=== PATIENT | female | born 1970 | race Caucasian/White ===

== ENCOUNTER 2017-11-26 19:30 | Observation (INO) | payer OTHER ==
[~2017-11-26] VITALS: Ht 162.6 cm; Wt 139.3 kg
[2017-11-26] MEDS ORDERED: VITAMIN D1000 UNI1 PO (19:41)
[2017-11-26] MEDS ORDERED: TUMS PO (19:41)
[2017-11-26] MEDS ORDERED: LEVOXYL125 MCG PO (19:41)
[2017-11-26 19:42] VITALS: BP 144/80
[2017-11-26 20:13] LABS: ABSOLUTE BASOPHILS 0.1 thou/uL (0.0-0.2); ABSOLUTE EOSINOPHILS 0.2 thou/uL (0.0-0.7); ABSOLUTE LYMPHOCYTES 2.8 thou/uL (0.8-5.3); ABSOLUTE MONOCYTES 0.7 thou/uL (0.0-1.2); ABSOLUTE NEUTROPHILS 7.1 thou/uL (1.6-8.1); BASOPHILS 0.8 %; EOSINOPHILS 2.2 %; HEMATOCRIT 39.4 % (37.0-47.0); HEMOGLOBIN 13.1 gm/dL (12.0-15.0); LYMPHOCYTES 25.3 %; MCH 28.4 pg (26.0-34.0); MCHC 33.1 g/dL (28.0-37.0); MCV 85.7 fL (80.0-100.0); MONOCYTES 6.1 %; MPV 7.6 fl. (7.2-11.1); NUCLEATED RBCS 0 /100WBC; PLATELET COUNT* 270 thou/uL (150-400); POLYS 65.6 %; RDW-CV 13.5 % (10.5-14.5); WBC 10.9 thou/uL (4.0-11.0)
[2017-11-26 20:23] LABS: ANION GAP 8 mmol/L (7-16); BUN 19 mg/dL (7-18); CALCIUM 7.7 mg/dL (8.5-10.1); CHLORIDE 104 mmol/L (98-107); CO2 29 mmol/L (21-32); GLUCOSE 140 mg/dL (70-99); POTASSIUM 4.1 mmol/L (3.5-5.1); SODIUM 141 mmol/L (136-145)
[2017-11-26 20:42] LABS: ALBUMIN 2.8 g/dL (3.4-5.0); ALKALINE PHOSPHATASE 72 U/L (46-116); CK-MB MASS < 0.5 ng/mL (<0.5-3.6); LIPASE 163 U/L (73-393); MAGNESIUM 1.9 mg/dL (1.8-2.4); NT-PRO BRAIN NAT PEPTIDE 141 pg/mL (<300); SGOT 15 U/L (15-37); SGPT 18 U/L (30-65); TOTAL BILIRUBIN 0.2 mg/dL (<0.1-1.0); TROPONIN-I LEVEL <0.06 ng/mL (<0.06)
[2017-11-26 21:52] VITALS: BP 129/57
[2017-11-26 23:26] VITALS: BP 102/42
[2017-11-27 04:00] VITALS: BP 126/61
--- NOTE | 2017-11-27 05:41 | NUR ---
PT ADMIT TO 211. ALERT ORIENTED. GETS UP WITH ASSIST. STEADY GAIT. TELEMETRY SHOWS SR. DENIES CP OR DISCOMFORT. WILL CONTINUE TO MONITOR
[2017-11-27 08:30] VITALS: BP 109/556
[2017-11-27 12:08] LABS: CREATININE 0.8 mg/dL (0.6-1.3); POTASSIUM 4.4 mmol/L (3.5-5.1)
[2017-11-27 12:34] VITALS: BP 135/65
--- NOTE | 2017-11-27 12:37 | NUR ---
ASSUMED PT CARE AT 0700 PT IS ALERT AND ORIENTED X 4 PT DENIES PAIN OR SOA ON RA, PT IS SR ON THE MONITOR, PT IS UP AD [place] PT IS NOT A FALL RISK, PT WILL DISCHARGE CARDIOLOGY CLEARED PT WANTS PT TO FOLLOW UP OUTPATIENT FOR STRESS TEST AND ECHO, PT IS PLEASANT AND COOPERATIVE, WILL CONTINUE TO MONITOR
--- NOTE | 2017-11-27 12:42 | EKG ---
[place] [address] ELECTROCARDIOGRAM REPORT Name: JEANNIESONYASHANIQUAEEN Room: [address] ADM IN ..#: [id number] Admission: 11/26/17 Attend Phys: Ciera Li Discharge: Date of : 72 Report #: [id number] THIS REPORT FOR: //name// [facility] ED Test Date: 2017-11-26 Test Time: 19:38:17 Pat Name: SHANIQUA GARDNER Department: Room: [facility] Gender: F Compliance Vice President: MC Jay : 1970 Requested By: Albert Oneill Order Number: [id number] MD: Corbin Rouse Measurements Intervals [place] Rate: 87 P: 8 [place]: 149 QRS: 22 QRSD: 87 T: 37 QT: 400 QTc: 482 Interpretive Statements Sinus rhythm Low voltage, precordial leads No previous ECG available for comparison Electronically Signed On 11-27-2017 12:42:03 CDT by Corbin Rouse [email or web address] <ELECTRONICALLY SIGNED> By: Corbin Rouse MD, [facility] 11/27/17 1242 37 37 Corbin Rouse MD, FACC /EPI
[2017-11-27 12:53] VITALS: BP 135/65
--- NOTE | 2017-12-02 11:09 | CON ---
[address] [address] CONSULTATION Name: JJSHANIQUAShavonne POWELLHARLEY Room: [address] Juliano Medrano#: [id number] Admission: 11/26/17 Attend Phys: Ciera Li Discharge: 11/27/17 Date of : 72 Report #: [id number] THIS REPORT FOR: //name// CC: Diya Cast CHIEF COMPLAINT: Chest pain. HISTORY OF PRESENT ILLNESS: The patient is a 47-year-old woman who has a remote history of abnormal cardiac testing result and coronary artery disease at [facility] more than 5 years ago, who presented with a resting episode of chest discomfort and exertional shortness of breath, which has been progressive over the past 4-6 weeks. She has a history of endocrine disease and hypocalcemia, hypothyroidism and she reports that when her calcium is low, she starts to develop cardiovascular symptoms. Her presenting ECG was normal and she has ruled out for an acute myocardial infarction by serial cardiac markers. She is asymptomatic for chest pain or shortness of breath this morning. Her mother is critically ill with malignancy and needs rides for her PET scans tomorrow and the patient is anxious for discharge. PAST MEDICAL HISTORY: Remotely, she had a history of being told she has had a heart attack at [facility] and subsequent followup had been lost. She had been hypertensive in the past, but has lost over 100 pounds and reports normal blood pressures. She has hypothyroidism and hypocalcemia. She had been seen by an construction scheduler at [facility] where she receives most of her primary care. PAST SURGICAL HISTORY: No recent surgeries. SOCIAL HISTORY: She is a nonsmoker. FAMILY HISTORY: There is no real family history of atherosclerotic heart disease. There is a history of AFib and her mother has a pacemaker apparently. REVIEW OF SYSTEMS: GENERAL: No fevers or chills. SKIN: No rashes. CARDIOVASCULAR: Positive chest pain. Positive dyspnea on exertion. No edema, no orthopnea, no PND. EYES: Denies any blurred vision or loss of vision. THROAT: Denies any dysphagia. MUSCULOSKELETAL: Positive weakness, diffuse. Denies any joint pain or swelling. CONSTITUTIONAL: Denies [place]vers [place] [address] CONSULTATION Name: SHANIQUA GARDNER [address] [id number] Admission: 11/26/17 Attend Phys: Ciera Li Discharge: 11/27/17 Date of : 72 Report #: [id number] PHYSICAL EXAMINATION: VITAL SIGNS: Blood pressures in the 120s/70s, in sinus rhythm, pulse ox 98% on room air. Her weight is 306 pounds. GENERAL: This is an obese adult woman. She is alert, no apparent distress. HEENT: Eyes are intact. No facial asymmetry. NECK: Supple. No jugular venous distention. CARDIOVASCULAR: Regular, I cannot hear a murmur or S3. LUNGS: Clear to auscultation. LABORATORY DATA: Her electrocardiogram demonstrates a sinus rhythm with normal voltage, no alternans. Normal ST segments. Troponin I is 0.06 x 3 sets. Hemoglobin is 13.1. ASSESSMENT AND PLAN: 1. Chest pain. There is a remote history of coronary artery disease, but she has ruled out for an acute myocardial infarction and I think it is okay for her to proceed with an outpatient 2-day nuclear stress test because of her size. She had had difficulty with treadmills in the past, so this will be a pharmacologic stress test. 2. Dyspnea. I have arranged for an echocardiogram. 3. Hypocalcemia. I will defer this to our hospital Internal Medicine colleagues in regards to replacement therapy. 4. Hypothyroidism. She will continue with her Synthroid as directed by her primary care doctor. We have arranged for followup after her stress test next week with our nurse practitioner within the next 2-3 weeks. <ELECTRONICALLY SIGNED> By: Corbin Rouse MD, FACC 12/02/17 1109 1108 [id number] Rouse MD, FACC /nt
[2017-12-28] MEDS ORDERED: CALCITRIOL0.25 MCG PO (12:08)
== END 2017-11-27 13:12 | disposition home or self-care (01) ==
LOC: M.ERS 19:30 → M.2W 21:06 → M.TBA-ER 21:06 → M.2W 21:53
PROVIDERS: Emergency Medicine Emergency Medical Services; ADMIT Internal Medicine
DX: I20.0 Unstable angina (principal); E83.51 Hypocalcemia; E03.9 Hypothyroidism, unspecified; R06.00 Dyspnea, unspecified; I25.2 Old myocardial infarction; Z98.890 Other specified postprocedural states

== ENCOUNTER → 2018-01-10 | Day surgery (SDC) | payer OTHER ==
[~2018-01-10] MED LIST: CALCITRIOL0.25 MCG PO; LEVOXYL125 MCG PO; TUMS PO; VITAMIN D1000 UNI1 PO
[2018-01-10 13:44] LABS: HEMATOCRIT 42.5 % (37.0-47.0); HEMOGLOBIN 14.1 gm/dL (12.0-15.0); MCH 28.2 pg (26.0-34.0); MCHC 33.2 g/dL (28.0-37.0); MPV 7.9 fl. (7.2-11.1); RDW-CV 13.8 % (10.5-14.5); WBC 10.4 thou/uL (4.0-11.0)
[2018-01-10 14:21] LABS: CALCIUM 7.5 mg/dL (8.5-10.1); CREATININE 0.9 mg/dL (0.6-1.3); POTASSIUM 3.9 mmol/L (3.5-5.1)
[2018-01-10 14:26] LABS: ALBUMIN 3.3 g/dL (3.4-5.0); TOTAL BILIRUBIN 0.5 mg/dL (<0.1-1.0); TOTAL PROTEIN 7.6 g/dL (6.4-8.2)
== END | disposition home or self-care (01) ==
LOC: M.SUR 10:51
PROVIDERS: Internal Medicine Gastroenterology
DX: Z12.11 Encounter for screening for malignant neoplasm of colon (principal); K57.30 Diverticulosis of large intestine without perforation or abscess without bleeding; K64.8 Other hemorrhoids; I25.10 Atherosclerotic heart disease of native coronary artery without angina pectoris; E03.9 Hypothyroidism, unspecified; E66.01 Morbid (severe) obesity due to excess calories; Z80.0 Family history of malignant neoplasm of digestive organs; Z90.49 Acquired absence of other specified parts of digestive tract; Z98.890 Other specified postprocedural states

== ENCOUNTER → 2019-02-05 | Outpatient (CLI) | payer OTHER ==
[2019-02-05 14:40] VITALS: BP 152/80
[2019-02-05 15:40] VITALS: BP 148/86
== END ==
LOC: M.INFUS 14:13
DX: E83.51 Hypocalcemia (principal); I10 Essential (primary) hypertension; I25.2 Old myocardial infarction; E89.0 Postprocedural hypothyroidism; E66.9 Obesity, unspecified

== ENCOUNTER → 2019-03-16 | Outpatient (CLI) | payer OTHER ==
[2019-03-16 11:48] VITALS: BP 154/95
[2019-03-16 12:24] VITALS: BP 150/88
--- NOTE | 2019-03-16 14:11 | NUR ---
ARRIVED AMBULATORY. MADE SELF COMFORTABLE. ORDER DOSE CLARAFIED. INFUSION COMPLETED AND TOELRATED WELL.
== END ==
LOC: M.INFUS 10:57
DX: E83.51 Hypocalcemia (principal)

== ENCOUNTER → 2019-07-11 | Outpatient (CLI) | payer OTHER | LOC: M.ULTRA 07:16 | DX: E89.0 Postprocedural hypothyroidism (principal) ==

== ENCOUNTER 2019-08-31 22:25 | Inpatient (IN) | payer OTHER ==
[~2019-08-31] VITALS: Ht 162.6 cm; Wt 167.8 kg
[~2019-08-31 22:25] MED LIST changes: -VITAMIN D1000 UNI1 PO; +VITAMIN D33000 UNIT PO
[2019-08-31 22:30] VITALS: BP 170/78
[2019-08-31] MEDS ORDERED: ADIPEX-P37.5 MG PO (22:39)
[2019-08-31 22:44] LABS: ABSOLUTE BASOPHILS 0.1 thou/uL (0.0-0.2); ABSOLUTE EOSINOPHILS 0.2 thou/uL (0.0-0.7); ABSOLUTE LYMPHOCYTES 2.9 thou/uL (0.8-5.3); ABSOLUTE MONOCYTES 0.8 thou/uL (0.0-1.2); ABSOLUTE NEUTROPHILS 7.9 thou/uL (1.6-8.1); BASOPHILS 0.8 %; EOSINOPHILS 1.7 %; HEMATOCRIT 40.6 % (37.0-47.0); HEMOGLOBIN 13.4 gm/dL (12.0-15.0); LYMPHOCYTES 24.3 %; MCH 28.4 pg (26.0-34.0); MONOCYTES 6.7 %; MPV 7.5 fl. (7.2-11.1); NUCLEATED RBCS 0 /100WBC; PLATELET COUNT* 301 thou/uL (150-400); POLYS 66.5 %; RBC 4.72 mil/uL (4.20-5.00); WBC 11.9 thou/uL (4.0-11.0)
[2019-08-31 22:51] LABS: CALCIUM 7.8 mg/dL (8.5-10.1); CREATININE 0.8 mg/dL (0.6-1.3); POTASSIUM 3.7 mmol/L (3.5-5.1)
[2019-08-31 23:01] LABS: ALBUMIN 3.2 g/dL (3.4-5.0); MAGNESIUM 1.8 mg/dL (1.8-2.4); TOTAL BILIRUBIN 0.3 mg/dL (<0.1-1.0); TOTAL PROTEIN 7.4 g/dL (6.4-8.2)
[2019-09-01 02:12] VITALS: BP 152/78
[2019-09-01 02:15] VITALS: BP 128/76
[2019-09-01] MEDS ORDERED: CALCIUM500 MG PO (03:04)
--- NOTE | 2019-09-01 05:56 | NUR ---
PT ADMITTED TO ROOM 227 FROM ED WITH HYPOCALCEMIA. PT HAS HX OF THYROIDECTOMY. PT REPORTS TINGLING TO MUSCLES BUT NOT PAIN. EKG SR. VSS ON RA. SR ON MONITOR. PT ORIENTED TO ROOM,PLAN OF CARE, TREATMENTS AND FALL PRECAUTIONS. MEDS REVIEWED. PT RESTING NOW WITH CALL LIGHT IN REACH
[2019-09-01 07:45] VITALS: BP 147/65
[2019-09-01 12:00] VITALS: BP 144/74
[2019-09-01 13:44] VITALS: BP 144/74
--- NOTE | 2019-09-01 14:07 | NUR ---
RECEIVED REPORT FROM KHADIJAH HEREDIA. ASSUMED CARE OF PT AROUND 0730. PT A&O X4. VSS. CARIDAC MONITOR IN PLACE TRACING SR WITH NO CHANGES. AM ASSESSMENT AND VITALS COMPLETED CHARTED. PT DENIED PAIN OR DISCOMFORT, STATES READINESS TO GO HOME. MEDS PER EMAR. PARTNER AT BEDSIDE. DR AARON ROUNDED - DISCHARGE ORDERS RECEIVED. DISCHARGE COMPLETED DOCUMENTED. DISCHAGE SUMMARY GONE OVER WITH PT, PT COMMUNICATES UNDERSTANDING. ALL BELONGINGS GATHERED AND LEFT WITH PT. IV AND CARDIAC MONIOR REMOVED. PT LEFT UNIT WALKING WITH NURSING STAFF. PT LEFT HOSPITAL IN CAR WITH PARTNER.
--- NOTE | 2019-09-03 08:32 | EKG ---
[place] [address] ELECTROCARDIOGRAM REPORT Name: JEANNIESONYASHANIQUAEEN Room: [place] [address] DIS IN .R.#: [id number] Admission: 09/01/19 Attend Phys: Ruel Kim Discharge: 09/01/19 Date of : 72 Report #: [id number] THIS REPORT FOR: //name// [facility] ED Test Date: 2019-08-31 Test Time: 22:30:04 Pat Name: SHANIQUA GARDNER Department: Room: [facility] Gender: F Photogeologist: : 1970 Requested By: Albert Oneill Order Number: [id number] MD: Caesar Guardado Measurements Intervals [place] Rate: 91 P: 13 IN: 143 QRS: 17 QRSD: 92 T: 39 QT: 383 QTc: 472 Interpretive Statements Sinus rhythm Baseline wander in lead(s) V3 Compared to ECG 11/26/2017 19:38:17 No significant changes Electronically Signed On 09-03-2019 8:32:33 MAGNAFLUX OPERATOR by Caesar Guardado [email or web address] <ELECTRONICALLY SIGNED> By: Caesar Guardado MD, FACC 09/03/19 0832 29 29 Caesar Guardado MD, FAC /EPI
== END 2019-09-01 14:08 | disposition home or self-care (01) | DRG 644 ==
LOC: M.ERS 22:25 → M.TBA-ER 09-01 00:07 → M.2W 09-01 02:09
PROVIDERS: Emergency Medicine Emergency Medical Services; ADMIT Family Medicine
DX: E20.9 Hypoparathyroidism, unspecified (principal); Z68.44 Body mass index [BMI] 60.0-69.9, adult; R65.10 Systemic inflammatory response syndrome (SIRS) of non-infectious origin without acute organ dysfunction; E66.01 Morbid (severe) obesity due to excess calories; R73.9 Hyperglycemia, unspecified; E89.0 Postprocedural hypothyroidism; Z79.899 Other long term (current) drug therapy; Z90.49 Acquired absence of other specified parts of digestive tract; R07.9 Chest pain, unspecified

== ENCOUNTER → 2020-01-14 | Outpatient (CLI) | payer BC ==
[~2020-01-14] MED LIST changes: +ADIPEX-P37.5 MG PO; +CALCIUM500 MG PO
== END ==
LOC: M.ULTRA 13:00
DX: N92.0 Excessive and frequent menstruation with regular cycle (principal)

== ENCOUNTER 2020-02-29 16:53 | Emergency (ER) | payer BC ==
[~2020-02-29] VITALS: Ht 162.6 cm; Wt 162.8 kg
--- NOTE | ~2020-02-29 | H ---
[address] [address] HISTORY AND PHYSICAL Name: SHANIQUA GARDNER Room: [facility] [place]#: [id number] Admission: 02/29/20 Attend Phys: Discharge: 02/29/20 Date of : 72 Report #: [id number] THIS REPORT FOR: //name// cc: Diya Fernández Maggie M. DO ~ THIS REPORT FOR: //name// Patient was here less than 24 hour please refer to the final summation note. Patient left AMA. By: [id number] Records Staff [facility] /LYLE
[2020-02-29 17:02] VITALS: BP 161/54
[2020-02-29] MEDS ORDERED: DEPO-PROVE150 MG/11 IM (17:05)
[2020-02-29 18:06] LABS: ABSOLUTE BASOPHILS 0.1 thou/uL (0.0-0.2); ABSOLUTE EOSINOPHILS 0.1 thou/uL (0.0-0.7); ABSOLUTE LYMPHOCYTES 2.3 thou/uL (0.8-5.3); ABSOLUTE MONOCYTES 0.6 thou/uL (0.0-1.2); ABSOLUTE NEUTROPHILS 7.1 thou/uL (1.6-8.1); EOSINOPHILS 1.1 %; HEMATOCRIT 39.6 % (37.0-47.0); HEMOGLOBIN 12.9 gm/dL (12.0-15.0); LYMPHOCYTES 22.8 %; MCH 27.5 pg (26.0-34.0); MCHC 32.6 g/dL (28.0-37.0); MCV 84.2 fL (80.0-100.0); NUCLEATED RBCS 0 /100WBC; PLATELET COUNT* 298 thou/uL (150-400); POLYS 69.1 %; RDW-CV 13.8 % (10.5-14.5); WBC 10.2 thou/uL (4.0-11.0)
[2020-02-29 18:14] LABS: CALCIUM 7.3 mg/dL (8.5-10.1); CREATININE 0.9 mg/dL (0.6-1.3)
[2020-02-29 18:25] LABS: TOTAL BILIRUBIN 0.2 mg/dL (<0.1-1.0); TOTAL PROTEIN 7.2 g/dL (6.4-8.2)
--- NOTE | 2020-02-29 19:11 | NUR ---
PT NOT IN ROOM AT 1840 FOR TESTS
[2020-02-29 20:00] VITALS: BP 160/80
--- NOTE | 2020-03-03 10:29 | EKG ---
[place] [address] ELECTROCARDIOGRAM REPORT Name: SHANIQUA GARDNER Isa Room: [address]#: [id number] Admission: 02/29/20 Attend Phys: David Cast Discharge: 02/29/20 Date of : 72 Date of Service: 02/29/20 170 Report #: [id number] THIS REPORT FOR: //name// [facility] ED Test Date: 2020-02-29 Test Time: 17:01:22 Pat Name: SHANIQUA GARDNER Department: Room: [facility] Gender: F Saddle Lining Stitcher: : 1970 Requested By: Juliana Fuentes Order Number: [id number] MD: Caesar Guardado Measurements Intervals [place] Rate: 82 P: 6 [place]: 135 QRS: 19 QRSD: 86 T: 33 QT: 401 QTc: 469 Interpretive Statements Sinus rhythm Baseline wander in lead(s) II,III,aVR,aVF Compared to ECG 08/31/2019 22:30:04 No significant changes Electronically Signed On 03-03-2020 10:29:08 CDT by Caesar Guardado [email or web address] <ELECTRONICALLY SIGNED> By: Caesar Guardado MD, FACC 03/03/20 1029 170 170 Caesar Guardado MD, FAC /EPI
== END 2020-02-29 20:00 | disposition left against medical advice (07) ==
LOC: M.ERS 16:53 → M.TBA-ER 19:10
PROVIDERS: Physician Assistant
DX: I20.0 Unstable angina (principal); R91.1 Solitary pulmonary nodule; R06.09 Other forms of dyspnea; I25.2 Old myocardial infarction; Z90.89 Acquired absence of other organs; Z79.899 Other long term (current) drug therapy

== ENCOUNTER → 2020-08-13 | Outpatient (CLI) | payer BC ==
[~2020-08-13] MED LIST changes: +DEPO-PROVE150 MG/11 IM
== END ==
LOC: M.ULTRA 06-19 09:00
PROVIDERS: ATTEND Family Medicine
DX: I87.2 Venous insufficiency (chronic) (peripheral) (principal)